=== PATIENT | female | born 1990 | race American Indian/Alaskan Native ===

== ENCOUNTER 2020-12-11 18:32 | Emergency (ER) | payer BC ==
--- NOTE | 2020-12-11 20:24 | Event Note ---
ED Screening Note Date of service: 12/11/20 Time: 20:23 ED Screening Note: 30-year-old female patient presents to the emergency department with complaints of chest pain radiating to her back and left arm starting yesterday. Patient was treated by her primary care provider for similar symptoms last month. She was given an unspecified IM injection and prescribed Naprosyn. No recent fall, trauma, or injury. Pain is worse with movement, lying supine, and deep inhalation. No venous thromboembolism risk factors identified on history. General: Awake, appropriately interactive, no acute distress. Neck: Supple. Full range of motion intact. Cardiovascular: Normal peripheral perfusion. No reproducible chest wall tenderness. Pulmonary: No respiratory distress. Patient is speaking normally without use of accessory muscles. Skin: No apparent rashes or lesions. Neurological: No facial asymmetry. Speech is clear. Follows commands. Patient is alert and oriented. Musculoskeletal: Moves all four extremities spontaneously with normal range of motion. Psych: Cooperative. Appropriate mood and affect. I have greeted and performed a focused rapid initial assessment of this patient. A comprehensive ED assessment and evaluation of the patient, analysis of all test results, and completion of the medical decision-making process will be conducted by additional ED providers. This initial assessment/diagnostic orders/clinical plan/treatment(s) is/are subject to change based on patients h ealth status, clinical progression and re-assessment. Further treatment and workup at subsequent clinical provider's discretion. Patient/guardian urged not to elope from the ED as their condition may be serious if not clinically assessed and managed.
--- NOTE | 2020-12-11 21:05 | XRay Report ---
CHEST 2 VIEWS INDICATION / CLINICAL INFORMATION: chest pain. COMPARISON: None available FINDINGS: SUPPORT DEVICES: None. HEART / MEDIASTINUM: No significant abnormality. LUNGS / PLEURA: No significant pulmonary or pleural abnormality. No pneumothorax. ADDITIONAL FINDINGS: No significant additional findings. IMPRESSION: No significant abnormality Signer Name: Ted Wiseman MD FACR Signed: 12/11/2020 9:00 PM Workstation Name: [id number]
[2020-12-11] MEDS ORDERED: ASPIRIN 325 MG TAB PO ONE (21:19)
[2020-12-11] MEDS ORDERED: CYCLOBENZAPRINE 10 MG TAB PO ONE (21:20)
[2020-12-11] MEDS ORDERED: dexAMETHasone 20 MG/5 ML VIAL IV ONE (21:20)
--- NOTE | 2020-12-11 21:21 | Emergency Department Report ---
ED Chest Pain HPI - General Chief Complaint: Chest Pain Stated Complaint: CHEST PAIN - SHARP PUI?: No Time Seen by Provider: 12/11/20 20:41 Source: patient Mode of arrival: Ambulatory Limitations: No Limitations - History of Present Illness Initial Comments: 30-year-old female with no significant past history presents to the ER today complaining of chest pain. Patient states that she started with the chest pain today. She states that is mainly in the left chest but also migrates into her right chest, and into her left shoulder and upper back areas. She describes it as a sharp pain that has been intermittent since. She states that sometimes is worse when she takes a very deep breath, when she lays down when she moves in certain ways. She denies any associated nausea, vomiting, diaphoresis, shortness of breath, cough, wheezing, abdominal pain, lower extremity swelling or calf pain. 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 Patient states that she had similar symptoms back in October and saw her primary care doctor for it. She states that her primary care doctor gave her an IM injection which she thinks that steroids and a prescription for naproxen but the primary care doctor never told what the pain could be coming from. She states that after getting a steroid injection her pain did resolve. She states prior to going to her PCP she did see an health and safety specialist for her pain but she was told that there is nothing he needs to do. She denies tobacco use. She is not on any control. She denies any family history of heart disease. MD Complaint: chest pain -: Gradual - Related Data Home Medications Medication Instructions Recorded Confirmed Last Taken Biotin [Biotin 1] 1 mg PO DAILY 12/05/13 12/05/13 12/04/13 Previous Rx's Medication Instructions Recorded Last Taken Type Cyclobenzaprine [Flexeril 10mg] 10 mg PO TID PRN #14 tablet 12/05/13 Unknown Rx Ibuprofen [Motrin] 800 mg PO Q8H PRN #20 tablet 12/05/13 Unknown Rx methOCARBAMOL [Robaxin TAB] 750 mg PO Q8H PRN #30 tablet 12/12/20 Unknown Rx Allergies Allergy/AdvReac Type Severity Reaction Status Date / Time No Known Allergies Allergy Verified 07/14/13 01:36 Heart Score - HEART Score History: Slightly suspicious EKG: Normal Age: < 45 Risk factors: No known risk factors Troponin: < normal limit HEART Score: 0 - EKG Read Time Time EKG Completed: 18:58 EKG Read Time: 19:00 ED Review of Systems ROS: Stated complaint: CHEST PAIN - SHARP Other details as noted in HPI Constitutional: denies: chills, fever Eyes: denies: eye pain, eye discharge, vision change ENT: denies: ear pain, throat pain, dental pain, hearing loss, epistaxis, congestion Respiratory: denies: cough, orthopnea, shortness of breath, SOB with exertion, SOB at rest, wheezing Cardiovascular: chest pain. denies: palpitations, dyspnea on exertion Gastrointestinal: denies: abdominal pain, nausea, diarrhea, constipation, hematemesis, hematochezia Genitourinary: denies: urgency, dysuria, discharge Musculoskeletal: back pain. denies: joint swelling, arthralgia, myalgia Skin: denies: rash, lesions, change in color, change in hair/nails, pruritus Neurological: denies: headache, weakness, paresthesias Psychiatric: denies: anxiety, depression, auditory hallucinations, visual hallucinations, homicidal thoughts, suicidal thoughts Hematological/Lymphatic: denies: easy bleeding, easy bruising, swollen glands ED Past Medical Hx - Past Medical History Previous Medical History?: No - Surgical History Past Surgical History?: No - Social History Smoking Status: Never Smoker Substance Use Type: None - Medications Home Medications: Home Medications Medication Instructions Recorded Confirmed Last Taken Type Biotin [Biotin 1] 1 mg PO DAILY 12/05/13 12/05/13 12/04/13 History Cyclobenzaprine [Flexeril 10mg] 10 mg PO TID PRN #14 tablet 12/05/13 Unknown Rx Ibuprofen [Motrin] 800 mg PO Q8H PRN #20 tablet 12/05/13 Unknown Rx methOCARBAMOL [Robaxin TAB] 750 mg PO Q8H PRN #30 tablet 12/12/20 Unknown Rx ED Physical Exam - General Limitations: No Limitations General appearance: alert, in no apparent distress - Head Head exam: Present: atraumatic, normocephalic, normal inspection - Eye Eye exam: Present: normal appearance, PERRL, EOMI Pupils: Present: normal accommodation - ENT ENT exam: Present: normal exam, mucous membranes moist - Neck Neck exam: Present: normal inspection, full ROM, other (Mild ttp left trapzius with mild spasm). Absent: tenderness - Respiratory Respiratory exam: Present: normal lung sounds bilaterally. Absent: respiratory distress, wheezes, rales, rhonchi, chest wall tenderness - Cardiovascular Cardiovascular Exam: Present: regular rate, normal rhythm, normal heart sounds - GI/Abdominal GI/Abdominal exam: Present: soft. Absent: distended, tenderness, guarding, rebound - Extremities Exam Extremities exam: Present: normal inspection, full ROM. Absent: tenderness, pedal edema, calf tenderness - Back Exam Back exam: Present: normal inspection, full ROM, paraspinal tenderness (mild ttp left interscapular area). Absent: vertebral tenderness - Neurological Exam Neurological exam: Present: alert, oriented X3, CN II-XII intact, normal gait. Absent: motor sensory deficit - Psychiatric Psychiatric exam: Present: normal affect, normal mood - Skin Skin exam: Present: intact ED Course Vital Signs 12/11/20 18:49 Temperature 99.2 F Pulse Rate 94 H Respiratory 16 Rate Blood Pressure 152/97 O2 Sat by Pulse 99 Oximetry ALBERT score - Albert Score Age > 65: (0) No Aspirin use within the Past 7 Days: (0) No 3 or more CAD Risk Factors: (0) No 2 or more Angina events in past 24 hrs: (0) No Known CAD with more than 50% Stenosis: (0) No Elevated Cardiac Markers: (0) No ST Deviation Greater than 0.5mm: (0) No ALBERT Score: 0 ED Medical Decision Making - Lab Data Result diagrams: 12/11/20 21:24 12/11/20 21:24 - EKG Data EKG shows normal: sinus rhythm Rate: normal (88) - EKG Data Interpretation: normal EKG - Radiology Data Radiology results: report reviewed Patient: JENAE TELLO MR#: [id number] : 1990 Acct:[id number] Age/Sex: 30 / F ADM Date: 12/11/20 Loc: ED Attending Dr: Ordering Physician: LILA SINGH Date of Service: 12/11/20 Procedure(s): CT angio chest Accession Number(s): [id number] cc: LILA SINGH CTA CHEST WITH IV CONTRAST INDICATION: Chest pain TECHNIQUE: Axial CT images were obtained through the chest after injection of IV contrast. Coronal oblique 2- D reconstruction images were produced. 3 plane MIP reconstruction images were produced at an independent workstation. All CTs at this facility utilize dose reduction techniques including automated exposure control, iterative reconstruction and weight based dosing when appropriate to reduce patient radiation dose to as low as reasonable achievable. COMPARISON: Chest radiograph, 12/11/2020 FINDINGS: Evaluation of the pulmonary arteries demonstrates no evidence of central or segmental filling defect to suggest pulmonary embolism. The heart is normal in size. The thoracic aorta is normal in caliber. Evaluation of the lung parenchyma demonstrates no focal airspace disease or pleural effusion. Limited imaging of the upper abdomen demonstrates No evidence of acute abnormality. Bones and soft tissues: Evaluation of bony and soft tissue structures demonstrates no acute abnormality. IMPRESSION: 1. No evidence of pulmonary embolism or acute parenchymal process. Signer Name: Jailyn Ballard MD Signed: 12/11/2020 11:39 PM Workstation Name: [id number] Transcribed By: YURI Dictated By: Jailyn Ballard MD Electronically Authenticated By: Jailyn Ballard MD Signed Date/Time: 12/11/202338 DD/ 34 TD/TT: Patient: JENAE TELLO MR#: [id number] : 1990 Acct:[id number] Age/Sex: 30 / F ADM Date: 12/11/20 Loc: ED Attending Dr: Ordering Physician: MEREDITH HORTA Date of Service: 12/11/20 Procedure(s): XR chest routine 2V Accession Number(s): [id number] cc: MEREDITH HORTA Fluoro Time In Minutes: CHEST 2 VIEWS INDICATION / CLINICAL INFORMATION: chest pain. COMPARISON: None available FINDINGS: SUPPORT DEVICES: None. HEART / MEDIASTINUM: No significant abnormality. LUNGS / PLEURA: No significant pulmonary or pleural abnormality. No pneumo thorax. ADDITIONAL FINDINGS: No significant additional findings. IMPRESSION: No significant abnormality Signer Name: Ted Wiseman MD FACR Signed: 12/11/2020 9:00 PM Workstation Name: [id number] Transcribed By: WI Dictated By: Ted Wiseman MD Electronically Authenticated By: Ted Wiseman MD Signed Date/Time: 12/11/202099 DD/ 58 TD/TT: Print Cancel - Medical Decision Making Labs reviewed -- CBC/CMP unremarkable. Trop x 2 negative. EKG x2 were both normal without any changes and showed no STEMI, acute ischemic changes or significant dysrhythmias, D dimer elevated at 241.1 but CTA negative for PE or any other acute abnormality. Chest x-ray shows nothing acute. Urinalysis negative UTI. Patient currently resting comfortably. She is not in any acute pain or respiratory distress. She is well-appearing and nontoxic and appears to be well-hydrated. She is neurologically intact with a normal gait. Her vital signs have remained stable throughout stay. She has Heart Score of 0. Her work-up does not suggest that is having acute myocardial infarction, significant arrhythmia, unstable angina, esophageal perforation, pulmonary embolism, aortic dissection, pneumothorax, severe pneumonia, sepsis or other significant pathology that would warrant further testing, continued ED treatment, admission or cardiology or other specialist consultation at this time. Discussed all lab and imaging results with patient. Symptoms could be more musculoskeletal at this time but I do recommend that she follows up with her primary care doctor for an outpatient follow-up with cardiology. Information was also faxed to [facility] [place] and she will be contacted for cardiology follow up. Patient expressed understanding of instructions and agree with plan. Patient stable at time of discharge. Critical care attestation.: If time is entered above; I have spent that time in minutes in the direct care of this critically ill patient, excluding procedure time. ED Disposition Clinical Impression: Atypical chest pain, Upper back pain on left side, Muscle strain Disposition: DC-01 TO HOME OR SELFCARE Is pt being admited?: No Does the pt Need Aspirin: No Condition: Stable Instructions: Acute Back Pain, Adult, Muscle Strain, [id number], Nonspecific Chest Pain, Adult, Back Exercises, [id number] Additional Instructions: I recommend that you take the muscle relaxer and continue taking the naproxen you have at home. Follow up with your primary care physician next week for referral to schedule clerk but your information was also faxed to the [facility] and [facility] [place] and they should be contacting you for outpatient cardiology follow-up. Return to ED if worse. Prescriptions: methOCARBAMOL [Robaxin TAB] 750 mg PO Q8H PRN #30 tablet PRN Reason: Muscle Spasm Referrals: PRIMARY CARE, [Primary Care Provider] - 3-5 Days Forms: Work/School Release Form(ED) Time of Disposition: 00:44
[2020-12-11 21:37] LABS: Basophils % (Auto) 0.6 % (0.0-1.8); Eosinophils % (Auto) 0.4 % (0.0-4.3); Hematocrit 30.6 % (30.3-42.9); Hemoglobin 9.9 gm/dl (10.1-14.3); Lymphocytes # (Auto) 1.3 K/mm3 (1.2-5.4); Lymphocytes % (Auto) 22.1 % (13.4-35.0); Mean Corpuscular HGB Conc 32 % (30-34); Mean Corpuscular Volume 71 fl (79-97); Monocytes # (Auto) 0.4 K/mm3 (0.0-0.8); Monocytes % (Auto) 6.2 % (0.0-7.3); Platelet Count 339 K/mm3 (140-440); Red Cell Distribution Width 18.7 % (13.2-15.2)
[2020-12-11 22:00] LABS: Blood Urea Nitrogen 11 mg/dL (7-17); Hemolysis Index 7
[2020-12-11 22:03] LABS: BUN/Creatinine Ratio 18
[2020-12-11 22:11] LABS: Bilirubin,Urine NEG (Negative); Blood,Urine NEG (Negative); Color,Urine Straw (Yellow); Mucus,Urine FEW /HPF; Protein,Urine <15 mg/dL mg/dL (Negative); Urobilinogen,Urine < 2.0 mg/dL (<2.0); WBC,Urine < 1.0 /HPF (0.0-6.0)
--- NOTE | 2020-12-11 23:43 | Cat Scan Report ---
CTA CHEST WITH IV CONTRAST INDICATION: Chest pain TECHNIQUE: Axial CT images were obtained through the chest after injection of IV contrast. Coronal oblique 2-D reconstruction images were produced. 3 plane MIP reconstruction images were produced at an [employer] workstation. All CTs at this facility utilize dose reduction techniques including automated expos ure control, iterative reconstruction and weight based dosing when appropriate to reduce patient radi ation dose to as low as reasonable achievable. COMPARISON: Chest radiograph, 12/11/2020 FINDINGS: Evaluation of the pulmonary arteries demonstrates no evidence of central or segmental filling defect to suggest pulmonary embolism. The heart is normal in size. The thoracic aorta is normal in caliber. Evaluation of the lung parenchyma demonstrates no focal airspace disease or pleural effusion. Limited imaging of the upper abdomen demonstrates No evidence of acute abnormality. Bones and soft tissues: Evaluation of bony and soft tissue structures demonstrates no acute abnormali ty. IMPRESSION: 1. No evidence of pulmonary embolism or acute parenchymal process. Signer Name: Jailyn Ballard MD Signed: 12/11/2020 11:39 PM Workstation Name: [id number]
[2020-12-12 02:42] VITALS: BP 131/91
--- NOTE | 2020-12-13 19:29 | Electrocardiograph Report ---
[facility] Test Date: 2020-12-11 Test Time: 18:58:42 Pat Name: JENAE TELLO Department: Room: Gender: F Parts Finisher: GKING3 : 1990 Requested By: BUBBA BIGGS Order Number: [id number] Reading MD: Agustin Pérez Measurements Intervals [place] Rate: 88 P: 52 WY: 176 QRS: 39 QRSD: 83 T: 35 QT: 354 QTc: 428 Interpretive Statements Sinus rhythm No previous ECG available for comparison Electronically Signed On 12-13-2020 19:29:46 EDT by Agustin Pérez
--- NOTE | 2020-12-13 19:33 | Electrocardiograph Report ---
[facility] Test Date: 2020-12-12 Test Time: 01:54:59 Pat Name: JENAE TELLO Department: Room: Gender: F Day Spa Manager: RACHEL : 1990 Requested By: LILA SINGH Order Number: [id number] Reading MD: Agustin Pérez Measurements Intervals [place] Rate: 79 P: 38 TN: 181 QRS: 32 QRSD: 84 T: 30 QT: 367 QTc: 421 Interpretive Statements Sinus rhythm Nonspecific T abnormalities, anterior leads Compared to ECG 12/11/2020 18:58:42 No significant change noted. Electronically Signed On 12-13-2020 19:32:35 EDT by Agustin Pérez
== END 2020-12-12 02:20 | disposition home or self-care (01) ==
LOC: ED 18:32
DX: T14.8XXA Other injury of unspecified body region, initial encounter (principal); M54.6 Pain in thoracic spine; R07.89 Other chest pain; Z79.899 Other long term (current) drug therapy; X58.XXXA Exposure to other specified factors, initial encounter; Y93.89 Activity, other specified; Y92.89 Other specified places as the place of occurrence of the external cause; Y99.8 Other external cause status
CPT/HCPCS: 36415; 71046; 71275; 80048; 81001; 83690; 84484; 84703; 85025; 85379; 93005; 96374; 99285; J1100; Q9967

== ENCOUNTER 2021-02-21 11:26 | Emergency (ER) | payer BC ==
[2021-02-21 12:52] VITALS: BP 144/94
[2021-02-21] MEDS ORDERED: ASPIRIN 325 MG TAB PO ONE (12:52)
--- NOTE | 2021-02-21 13:45 | XRay Report ---
CHEST 2 VIEWS INDICATION / CLINICAL INFORMATION: Chest pain. COMPARISON: Chest 2 views and CTA chest dated 12/11/2020 FINDINGS: SUPPORT DEVICES: None. HEART / MEDIASTINUM: No significant abnormality. LUNGS / PLEURA: No significant pulmonary abnormality. No significant pleural effusion. No pneumothora x. ADDITIONAL FINDINGS: No significant additional findings. IMPRESSION: 1. No acute abnormality of the chest. Signer Name: Paramjit Strange MD Signed: 02/21/2021 1:41 PM Workstation Name: [id number]
[2021-02-21 13:47] LABS: Alanine Aminotransferase 11 units/L (7-56); Albumin 4.2 g/dL (3.9-5); Blood Urea Nitrogen 11 mg/dL (7-17); Calcium 9.5 mg/dL (8.4-10.2); Hemolysis Index 4
[2021-02-21 13:50] LABS: BUN/Creatinine Ratio 16; Basophils # (Auto) 0.1 K/mm3 (0.0-0.1); Basophils % (Auto) 1.2 % (0.0-1.8); Eosinophils # (Auto) 0.1 K/mm3 (0.0-0.4); Hematocrit 34.8 % (30.3-42.9); Hemoglobin 11.2 gm/dl (10.1-14.3); Lymphocytes # (Auto) 0.9 K/mm3 (1.2-5.4); Lymphocytes % (Auto) 13.8 % (13.4-35.0); Mean Corpuscular HGB Conc 32 % (30-34); Mean Corpuscular Volume 75 fl (79-97); Monocytes # (Auto) 0.5 K/mm3 (0.0-0.8); Monocytes % (Auto) 6.7 % (0.0-7.3); Platelet Count 334 K/mm3 (140-440); Red Blood Count 4.65 M/mm3 (3.65-5.03)
[2021-02-21 15:26] LABS: Red Cell Distribution Width 21.1 % (13.2-15.2)
--- NOTE | 2021-02-21 16:22 | Emergency Department Report ---
ED Chest Pain HPI - General Chief Complaint: Chest Pain Stated Complaint: MID CHEST PAIN PUI?: No Time Seen by Provider: 02/21/21 15:40 Source: patient Mode of arrival: Ambulatory Limitations: No Limitations - History of Present Illness Initial Comments: Chief complaint: I think it is just a chest strain." HPI: This is a 30-year-old female with no significant past medical history who presents with 2 days of chest pain. Achy pain worse when she leans over certain position. Worse when she moves. Worse when she takes a deep breath. Or to palpation. She pulls heavy boxes at a warehouse. She denies leg pain. She denies travel. No use of oral contraceptives. She does not take any [id number] medications. No known family history of VTE. No family history of premature cardiac disease. Patient denies fever, cough, shortness of breath. Family history notable for hypertension, diabetes mellitus, mother was diagnosed with breast cancer in her 50s Patient has received consistent primary care. Dr. Mirza is her PCP. MD Complaint: chest pain -: Gradual, days(s) (2 days ago) Onset: during rest Pain Location: substernal Pain Radiation: none Severity: mild Severity scale (0 -10): 5 Quality: aching Consistency: intermittent Improves With: remaining still Worsens With: inspiration, palpation, movement Treatments Prior to Arrival: none - Related Data Home Medications Medication Instructions Recorded Confirmed Last Taken Biotin [Biotin 1] 1 mg PO DAILY 12/05/13 12/05/13 12/04/13 Previous Rx's Medication Instructions Recorded Last Taken Type Cyclobenzaprine [Flexeril 10mg] 10 mg PO TID PRN #14 tablet 12/05/13 Unknown Rx Ibuprofen [Motrin] 800 mg PO Q8H PRN #20 tablet 12/05/13 Unknown Rx methOCARBAMOL [Robaxin TAB] 750 mg PO Q8H PRN #30 tablet 12/12/20 Unknown Rx Ibuprofen [Motrin 400 MG tab] 400 mg PO TID 5 Days #15 tablet 02/21/21 Unknown Rx Allergies Allergy/AdvReac Type Severity Reaction Status Date / Time No Known Allergies Allergy Verified 07/14/13 01:36 Heart Score - HEART Score History: Slightly suspicious EKG: Normal Age: < 45 Risk factors: No known risk factors Troponin: < normal limit HEART Score: 0 - EKG Read Time Time EKG Completed: 13:02 EKG Read Time: 13:06 - Critical Actions Critical Actions: 0-3 pts:0.9-1.7%risk of adverse cardiac event.Candidate for discharge ED Review of Systems ROS: Stated complaint: MID CHEST PAIN Other details as noted in HPI Comment: All other systems reviewed and negative Constitutional: denies: fever, malaise Respiratory: denies: cough, shortness of breath Cardiovascular: chest pain Gastrointestinal: denies: abdominal pain, nausea, vomiting Neurological: headache ED Past Medical Hx - Past Medical History Previous Medical History?: No - Surgical History Past Surgical History?: No - Family History Family history: cancer (Breast cancer), diabetes, hypertension - Social History Smoking Status: Never Smoker Substance Use Type: None - Medications Home Medications: Home Medications Medication Instructions Recorded Confirmed Last Taken Type Biotin [Biotin 1] 1 mg PO DAILY 12/05/13 12/05/13 12/04/13 History Cyclobenzaprine [Flexeril 10mg] 10 mg PO TID PRN #14 tablet 12/05/13 Unknown Rx Ibuprofen [Motrin] 800 mg PO Q8H PRN #20 tablet 12/05/13 Unknown Rx methOCARBAMOL [Robaxin TAB] 750 mg PO Q8H PRN #30 tablet 12/12/20 Unknown Rx Ibuprofen [Motrin 400 MG tab] 400 mg PO TID 5 Days #15 tablet 02/21/21 Unknown Rx ED Physical Exam - General Limitations: No Limitations General appearance: alert, in no apparent distress, other (Pleasant, smiling, comfortable, nontoxic appearing) - Head Head exam: Present: atraumatic, normocephalic - Eye Eye exam: Present: normal appearance - ENT ENT exam: Present: mucous membranes moist - Neck Neck exam: Present: normal inspection, full ROM - Respiratory Respiratory exam: Present: normal lung sounds bilaterally. Absent: respiratory distress, wheezes, rales, rhonchi - Cardiovascular Cardiovascular Exam: Present: regular rate, normal rhythm, normal heart sounds. Absent: systolic murmur, diastolic murmur, rubs, gallop - GI/Abdominal GI/Abdominal exam: Present: soft, normal bowel sounds. Absent: distended, tenderness, guarding, rebound - Extremities Exam Extremities exam: Present: normal inspection - Neurological Exam Neurological exam: Present: alert, oriented X3 - Psychiatric Psychiatric exam: Present: normal affect, normal mood - Skin Skin exam: Present: warm, dry, intact, normal color. Absent: rash ED Course Vital Signs 02/21/21 12:49 Temperature 98.4 F Pulse Rate 84 Respiratory 18 Rate Blood Pressure 144/94 [Right] O2 Sat by Pulse 100 Oximetry ALBERT score - Albert Score Age > 65: (0) No Aspirin use within the Past 7 Days: (0) No 3 or more CAD Risk Factors: (0) No 2 or more Angina events in past 24 hrs: (0) No Known CAD with more than 50% Stenosis: (0) No Elevated Cardiac Markers: (0) No ST Deviation Greater than 0.5mm: (0) No ALBERT Score: 0 ED Medical Decision Making - Lab Data Result diagrams: 02/21/21 12:55 02/21/21 12:55 Laboratory Results - last 24 hr 02/21/21 02/21/21 02/21/21 12:55 12:55 15:27 WBC 6.7 RBC 4.65 Hgb 11.2 Hct 34.8 MCV 75 L MCH 24 L MCHC 32 RDW 21.1 H Plt Count 334 Lymph % (Auto) 13.8 Parke % (Auto) 6.7 Eos % (Auto) 1.0 Baso % (Auto) 1.2 Lymph # (Auto) 0.9 L Parke # (Auto) 0.5 Eos # (Auto) 0.1 Baso # (Auto) 0.1 Seg Neutrophils % 77.3 H Seg Neutrophils # 5.2 Sodium 139 Potassium 3.9 Chloride 105.7 Carbon Dioxide 25 Anion Gap 12 BUN 11 Creatinine 0.7 Estimated GFR > 60 BUN/Creatinine Ratio 16 Glucose 87 Calcium 9.5 Total Bilirubin 0.20 AST 19 ALT 11 Alkaline Phosphatase 63 Troponin T < 0.010 < 0.010 Total Protein 7.1 Albumin 4.2 Albumin/Globulin Ratio 1.4 - EKG Data -: EKG Interpreted by Me EKG shows normal: sinus rhythm, axis, intervals, QRS complexes, ST-T waves Rate: normal - EKG Data Interpretation: normal EKG - Radiology Data Radiology results: report reviewed Study Comments [facility] [address] [place] [address] XRay Report Signed Patient: JENAE TELLO MR#: [id number] : 1990 Acct:[id number] Age/Sex: 30 / F ADM Date: 02/21/21 Loc: ED Attending Dr: Ordering Physician: GRIS BAILEY MD Date of Service: 02/21/21 Procedure(s): XR chest routine 2V Accession Number(s): [id number] cc: ED MD LYNN Fluoro Time In Minutes: CHEST 2 VIEWS INDICATION / CLINICAL INFORMATION: Chest pain. COMPARISON: Chest 2 views and CTA chest dated 12/11/2020 FINDINGS: SUPPORT DEVICES: None. HEART / MEDIASTINUM: No significant abnormality. LUNGS / PLEURA: No significant pulmonary abnormality. No significant pleural effusion. No pneumothorax. ADDITIONAL FINDINGS: No significant additional findings. IMPRESSION: 1. No acute abnormality of the chest. Signer Name: Paramjit Strange MD Signed: 02/21/2021 1:41 PM Workstation Name: [id number] Transcribed By: MARIA L Dictated By: Paramjit Strange MD Electronically Authenticated By: Paramjit Strange MD Signed Date/Time: 02/21/21 134 DD/ 1340 TD/TT - Medical Decision Making Chest wall strain due to strenuous work. Acute or emergent conditions such as pneumothorax, pneumonia, pericarditis, pulmonary embolism, AK have been ruled out with work-up in the emergency department including chest radiograph, EKG, CBC chemistry troponin x2. All of these diagnostics were normal I have prescribed ibuprofen scheduled dosing 400 mg 3 times daily for anti- inflammatory effect as well as pain control. I recommended heat therapy. I recommended follow-up with her PCP Dr. Mirza for full physical exam which is overdue. Critical care attestation.: If time is entered above; I have spent that time in minutes in the direct care of this critically ill patient, excluding procedure time. ED Disposition Clinical Impression: Chest wall muscle strain Disposition: HOME / SELF CARE / HOMELESS Is pt being admited?: No Does the pt Need Aspirin: No Condition: Stable Instructions: Muscle Strain, [id number] Prescriptions: Ibuprofen [Motrin 400 MG tab] 400 mg PO TID 5 Days #15 tablet Referrals: PRIMARY CARE, [Primary Care Provider] - 3-5 Days Forms: Work/School Release Form(ED)
--- NOTE | 2021-02-25 08:46 | Electrocardiograph Report ---
[facility] Test Date: 2021-02-21 Test Time: 13:02:14 Pat Name: JENAE TELLO Department: Room: Gender: F [employer]: POPPY : 1990 Requested By: ED DOC Order Number: [id number] Reading MD: Elder Chan Measurements Intervals [place] Rate: 82 P: 18 WI: 176 QRS: 17 QRSD: 86 T: 4 QT: 367 QTc: 429 Interpretive Statements Sinus rhythm nonspecific st-t Compared to ECG 12/12/2020 01:54:59 Electronically Signed On 02-25-2021 8:45:50 EDT by Elder Chan
== END 2021-02-21 16:50 | disposition home or self-care (01) ==
LOC: ED 11:26
DX: S29.011A Strain of muscle and tendon of front wall of thorax, initial encounter (principal); X50.0XXA Overexertion from strenuous movement or load, initial encounter; Y93.89 Activity, other specified; Y92.89 Other specified places as the place of occurrence of the external cause; Y99.8 Other external cause status
CPT/HCPCS: 36415; 71046; 80053; 84484; 85025; 93005; 99283

== ENCOUNTER 2021-02-25 01:17 | Emergency (ER) | payer BC ==
[2021-02-25 04:40] LABS: Basophils % (Auto) 0.6 % (0.0-1.8); Eosinophils % (Auto) 0.7 % (0.0-4.3); Hematocrit 33.5 % (30.3-42.9); Hemoglobin 10.8 gm/dl (10.1-14.3); Lymphocytes # (Auto) 1.2 K/mm3 (1.2-5.4); Lymphocytes % (Auto) 18.3 % (13.4-35.0); Mean Corpuscular HGB Conc 32 % (30-34); Mean Corpuscular Volume 75 fl (79-97); Monocytes # (Auto) 0.4 K/mm3 (0.0-0.8); Monocytes % (Auto) 6.6 % (0.0-7.3); Platelet Count 351 K/mm3 (140-440); Red Cell Distribution Width 20.6 % (13.2-15.2)
[2021-02-25 04:41] LABS: Blood Urea Nitrogen 12 mg/dL (7-17); Calcium 9.4 mg/dL (8.4-10.2); Hemolysis Index 0
[2021-02-25 04:42] LABS: BUN/Creatinine Ratio 20
--- NOTE | 2021-02-25 09:53 | Emergency Department Report ---
ED Chest Pain HPI - General Chief Complaint: Chest Pain Stated Complaint: CHEST PAINS ON LEFT SIDE Time Seen by Provider: 02/25/21 09:32 Source: patient Mode of arrival: Ambulatory Limitations: No Limitations - History of Present Illness Initial Comments: 30-year-old female presents to ED for left-sided chest pain. Patient was seen and evaluated here for chest pain 4 days ago. She was given a prescription for ibuprofen. Patient states she still has the chest pain. She reports her first ED visit pain was substernal. Patient states pain migrated to the left chest 2 days ago. She states pain feels like throbbing, worse with deep breath. She de nies any cough, fever, shortness of breath, nausea or vomiting, leg pain or swelling. MD Complaint: chest pain -: days(s) (4) Onset: during rest Pain Location: left chest Pain Radiation: LUE Severity: moderate Quality: other (Throbbing) Consistency: intermittent Improves With: nothing Worsens With: other (Deep breath) re: denies: nausea, vomting, diaphoresis, dyspnea Other Symptoms: denies: cough, fever, syncope, leg swelling Treatments Prior to Arrival: other (Ibuprofen) - Related Data Home Medications Medication Instructions Recorded Confirmed Last Taken Biotin [Biotin 1] 1 mg PO DAILY 12/05/13 12/05/13 12/04/13 Previous Rx's Medication Instructions Recorded Last Taken Type Cyclobenzaprine [Flexeril 10mg] 10 mg PO TID PRN #14 tablet 12/05/13 Unknown Rx Ibuprofen [Motrin] 800 mg PO Q8H PRN #20 tablet 12/05/13 Unknown Rx methOCARBAMOL [Robaxin TAB] 750 mg PO Q8H PRN #30 tablet 12/12/20 Unknown Rx Ibuprofen [Motrin 400 MG tab] 400 mg PO TID 5 Days #15 tablet 02/21/21 Unknown Rx methOCARBAMOL [Robaxin TAB] 500 mg PO Q8HR PRN #20 tablet 02/25/21 Unknown Rx Allergies Allergy/AdvReac Type Severity Reaction Status Date / Time No Known Allergies Allergy Verified 07/14/13 01:36 Heart Score - HEART Score History: Slightly suspicious EKG: Normal Age: < 45 Risk factors: No known risk factors Troponin: < normal limit HEART Score: 0 - EKG Read Time Time EKG Completed: 07:59 EKG Read Time: 08:03 ED Review of Systems ROS: Stated complaint: CHEST PAINS ON LEFT SIDE Other details as noted in HPI Comment: All other systems reviewed and negative Constitutional: denies: chills, fever Respiratory: denies: cough, shortness of breath Cardiovascular: chest pain Gastrointestinal: denies: nausea, vomiting Musculoskeletal: other (Denies leg pain and swelling) ED Past Medical Hx - Social History Smoking Status: Never Smoker Substance Use Type: None - Medications Home Medications: Home Medications Medication Instructions Recorded Confirmed Last Taken Type Biotin [Biotin 1] 1 mg PO DAILY 12/05/13 12/05/13 12/04/13 History Cyclobenzaprine [Flexeril 10mg] 10 mg PO TID PRN #14 tablet 12/05/13 Unknown Rx Ibuprofen [Motrin] 800 mg PO Q8H PRN #20 tablet 12/05/13 Unknown Rx methOCARBAMOL [Robaxin TAB] 750 mg PO Q8H PRN #30 tablet 12/12/20 Unknown Rx Ibuprofen [Motrin 400 MG tab] 400 mg PO TID 5 Days #15 tablet 02/21/21 Unknown Rx methOCARBAMOL [Robaxin TAB] 500 mg PO Q8HR PRN #20 tablet 02/25/21 Unknown Rx ED Physical Exam - General Limitations: No Limitations General appearance: alert, in no apparent distress, obese - Head Head exam: Present: atraumatic, normocephalic - Eye Eye exam: Present: normal appearance, EOMI - ENT ENT exam: Present: mucous membranes moist - Neck Neck exam: Present: normal inspection - Respiratory Respiratory exam: Present: normal lung sounds bilaterally, chest wall tenderness. Absent: respiratory distress - Cardiovascular Cardiovascular Exam: Present: regular rate, normal rhythm - GI/Abdominal GI/Abdominal exam: Present: soft. Absent: distended, tenderness - Extremities Exam Extremities exam: Present: normal inspection. Absent: pedal edema, calf tenderness - Neurological Exam Neurological exam: Present: alert, oriented X3 - Psychiatric Psychiatric exam: Present: normal affect, normal mood - Skin Skin exam: Present: warm, dry, intact, normal color ED Course Vital Signs 02/25/21 02/25/21 03:12 11:37 Temperature 98.2 F 98.1 F Pulse Rate 83 78 Respiratory 18 18 Rate Blood Pressure 147/86 Blood Pressure 138/84 [Left] O2 Sat by Pulse 100 100 Oximetry GARRETT score - Garrett Score Age > 65: (0) No Aspirin use within the Past 7 Days: (0) No 3 or more CAD Risk Factors: (0) No 2 or more Angina events in past 24 hrs: (0) No Known CAD with more than 50% Stenosis: (0) No Elevated Cardiac Markers: (0) No ST Deviation Greater than 0.5mm: (0) No GARRETT Score: 0 ED Medical Decision Making - Lab Data Result diagrams: 02/25/21 03:43 02/25/21 03:43 - EKG Data -: EKG Interpreted by Me EKG shows normal: sinus rhythm, axis, intervals, QRS complexes, ST-T waves Rate: normal - EKG Data Interpretation: no acute changes - Medical Decision Making EKG normal. Troponin negative. Chest x-ray normal at previous visit. No need for repeat chest x-ray at this time as patient is in no respiratory distress, O2 sats are normal, lung sounds are clear bilaterally. D-dimer was sent which is also within normal limits. Patient has some tenderness with palpation. Patient was previously prescribed ibuprofen at last ED visit. I will add a muscle relaxer to this. Patient will be discharged at this time. Outpatient follow-up advised, return precautions given. - Differential Diagnosis Chest wall pain, PE, ACS Critical care attestation.: If time is entered above; I have spent that time in minutes in the direct care of this critically ill patient, excluding procedure time. ED Disposition Clinical Impression: Chest pain Disposition: 01 HOME / SELF CARE / HOMELESS Is pt being admited?: No Condition: Stable Instructions: Chest Wall Pain, [id number], Nonspecific Chest Pain, Adult Prescriptions: methOCARBAMOL [Robaxin TAB] 500 mg PO Q8HR PRN #20 tablet PRN Reason: Muscle Spasm Referrals: PRIMARY CARE, [Primary Care Provider] - 3-5 Days [facility] [Provider Group] - 3-5 Days Forms: Work/School Release Form(ED) Time of Disposition: 10:37
[2021-02-25 11:39] VITALS: BP 138/84
--- NOTE | 2021-02-27 08:53 | Electrocardiograph Report ---
[facility] Test Date: 2021-02-25 Test Time: 07:59:29 Pat Name: JENAE TELLO Department: Room: Gender: F [employer]: CARRIE : 1990 Requested By: OSEI SCOTT Order Number: [id number] Reading MD: Hal Aguila Measurements Intervals [place] Rate: 84 P: 34 DE: 177 QRS: 23 QRSD: 66 T: 23 QT: 370 QTc: 438 Interpretive Statements Sinus rhythm Low voltage, precordial leads Compared to ECG 02/21/2021 13:02:14 Low QRS voltage now present Electronically Signed On 02-27-2021 8:52:54 EDT by Hal Aguila
== END 2021-02-25 11:37 | disposition home or self-care (01) ==
LOC: ED 01:17
DX: R07.9 Chest pain, unspecified (principal)
CPT/HCPCS: 36415; 80048; 84484; 85025; 85379; 93005; 99283